=== PATIENT | female | born 1985 | race Caucasian/White ===

== ENCOUNTER 2020-11-12 13:16 | Emergency (ER) | payer SELFPAY ==
[~2020-11-12] VITALS: Ht 165.1 cm; Wt 68.0 kg
[2020-11-12] MEDS ORDERED: PROM25 PO (15:12)
[2020-11-12] MEDS ORDERED: ATIVAN0.5 MG PO (15:12)
[2020-11-12] MEDS ORDERED: Cyclobenzaprine5 MG PO (15:13)
== END 2020-11-12 15:18 | disposition home or self-care (01) ==
LOC: ER 13:16
DX: T17.228A Food in pharynx causing other injury, initial encounter (principal); Z88.1 Allergy status to other antibiotic agents
CPT/HCPCS: 70360; 99283-25; J1100